=== PATIENT | male | born 1975 | race African-American/Black ===

== ENCOUNTER 2022-10-22 08:38 | Day surgery (SDC) | payer OTHER ==
[2022-10-18 14:04] VITALS: BMI 30.2
[2022-10-22 08:55] VITALS: RESP 18; TEMP 97.7
[2022-10-22 10:19] VITALS: BP 130/63
[2022-10-22 10:32] VITALS: PULSE 66
== END 2022-10-22 10:35 | disposition home or self-care (01) ==
LOC: FASU-ENDO 08:38
PROVIDERS: ATTEND Internal Medicine Gastroenterology
PROC: 0DJD8ZZ Inspection of Lower Intestinal Tract, Via Natural or Artificial Opening Endoscopic (ICD-10-PCS; principal; 2022-10-22 09:55)
DX: Z12.11 Encounter for screening for malignant neoplasm of colon (principal)
CPT/HCPCS: 82962